=== PATIENT | male | born 1940 | race Caucasian/White ===

== ENCOUNTER → 2018-05-13 | Outpatient (CLI) | payer OTHER ==
[~2018-05-13] MED LIST: ASPIRIN81 M2 PO; CIALIS5 MG PO; GINGER250 MG PO; GLUCOSAMINE HC500 M1 PO; LOSARTAN POTASS50 MG PO; NEURONTIN 300300 M1 PO; NORVASC5 MG PO; SAW PALMETTO450 MG PO; VITAMIN B-1100 M2 PO; VITAMIN D3 COM1 EACH PO
== END ==
LOC: MRI 12:37
DX: M47.816 Spondylosis without myelopathy or radiculopathy, lumbar region (principal); M48.05 Spinal stenosis, thoracolumbar region; M51.25 Other intervertebral disc displacement, thoracolumbar region; M51.27 Other intervertebral disc displacement, lumbosacral region; R29.898 Other symptoms and signs involving the musculoskeletal system

== ENCOUNTER → 2018-06-14 | Outpatient (CLI) | payer OTHER ==
[~2018-06-14] VITALS: Ht 185.4 cm; Wt 83.1 kg
--- NOTE | ~2018-06-14 | HPC ---
[facility] [place] [address] PAIN MANAGEMENT CONSULTATION Name: FABRICEJB Dez HERNANDEZ Room #: REG [facility].#: [id number] Admission: 06/14/18 ������������������ Attend Phys: Patrice Mariscal DO Discharge: ������������������ Date of : 42 Report #: [id number] THIS REPORT FOR: //name// CC: Patrice Valenzuela MD DATE OF SERVICE: 06/14/2018 CHIEF COMPLAINT: Bilateral lower extremity paresthesias. HISTORY OF PRESENT ILLNESS: As you know, the patient is a very pleasant 77-year-old male with longstanding history of peripheral neuropathy, which involves bilateral lower extremities in a stocking distribution. He was referred to our clinic to discuss treatment options for peripheral neuropathic pain. We saw the patient in consultation on 05/18/2018 per the request of his primary care physician and he was prescribed gabapentin for neuropathic pain control. He was given a titration schedule to follow. The patient states he began the medication, but did not like the sensation he had and did not feel his symptoms required medications as he was only having mild symptoms. He subsequently discontinued the medication. He had no significant side effects to the medication except for some somnolence in the evening hours. He returns today in followup visit to discuss options for treatment. He is denying any new injury, new trauma or any changes in medical history except for the discontinuation of gabapentin indicated above. ALLERGIES: No known drug allergies. CURRENT MEDICATIONS: Losartan 50 mg once a day, amlodipine 5 mg once a day, Cialis 5 mg p.r.n., aspirin 81 mg per day, saw palmetto 500 mg once a day, multivitamin 1 tab per day, thiamine 100 mg once a day, wayne root 250 mg once a day and glucosamine 500 mg once a day. PQRS: The patient has osteoarthritic changes of the lumbar spine, bilateral knees, no rheumatoid arthritis. He is placing current pain score at 2/10. He is not a fall risk, has not had a fall in the last 3 months. He is not on blood thinners, but is treated for hypertension. He is not on any chronic opioids. He has a low opioid assessment for risk of addiction. He is placing pain impact score at 26/70, mild interference of daily activities secondary to pain. IMAGING: No new imaging available. PHYSICAL EXAMINATION: VITAL SIGNS: Blood pressure 142/88, pulse 85, respiratory rate 16 and unlabored. The patient is 100% on room air, height 6 feet 1 inch tall, weight 183.2 pounds, BMI [place] 24.2[place] [address] PAIN MANAGEMENT CONSULTATION Name: JB AVINA Dez HERNANDEZ Room #: REG [facility]#: [id number] Admission: 06/14/18 ������������������ Attend Phys: Patrice Mariscal DO Discharge: ������������������ Date of : 41 Report #: [id number] GENERAL: Well-developed, well-nourished, well-hydrated 77-year-old male appearing stated age, placing pain no greater than 2/10. HEENT: Normocephalic and atraumatic. Pupils are equal, round and reactive to light. EXTREMITIES: Show no clubbing, no cyanosis and no edema. MUSCULOSKELETAL: Lower extremity strength appears equal and symmetrical 5/5, intact to light touch from L1 through L4. There is tactile sensation loss for a L5-S1 dermatomal distribution in the distal portion in a stocking type pattern of the bilateral lower extremities. Ankle clonus is negative. Babinski is negative. ASSESSMENT: 1. Peripheral neuropathy. 2. 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 3. Chronic intractable pain. PLAN: 1. The patient returns today in followup visit to discuss treatment options for peripheral neuropathic symptoms. He states at this time his pain is easily tolerated. He does not wish to be on any long-term medication. He is not interested in the spinal cord stimulator and surgical options do not exist for peripheral neuropathic symptoms such as his. We did discuss the gabapentin as an option for treatment, but again the patient did not wish to be on medications. He has subsequently discontinued the gabapentin, but does have that available if he wish to restart that medication assuming his symptoms return to a level of intolerable pain levels. 2. We spent 20 minutes of time with the patient today just discussing adjunctive treatment options including acupuncture therapy as a treatment option, myofascial release even in mindful awareness and cognitive behavioral therapy, all of which have been shown to be effective in diabetic peripheral neuropathy, not dissimilar to what the patient is experiencing. He will consider these options. I did give the patient some information about acupuncture therapists in the area that we would recommend. 3. We will see the patient back in followup visit on an as needed basis. I am pleased at this point that the patient states that his pain is completely tolerable, he is not having any issues, he does not wish to initiate any long-term therapy if he has tolerable symptoms at present. Certainly, this can be readdressed if his pain does become intensified. 4. We will be returning the patient's care to Dr. Fuentes Valenzuela, the referring physician. We will be available to see him back in followup visit on an as needed basis. ��������������������������������������������� ���������������������������������������� By: ��������������������������������������������� 1158 0730 Patrice Mariscal DO /nt
[2018-06-14 10:04] VITALS: BP 142/88
--- NOTE | 2018-06-14 10:27 | NUR ---
Pain Clinic Assessment: 1. History of Osteoarthritis: Not Applicable History of Rheumatoid Arthritis: Not Applicable 2. Height: 6 ft. 1 in. 185.4 cm. Weight: 183.2 lb. oz. 83.099 kg. Patient's BMI: 24.2 3. Vital Signs: BP: 142/88 Pulse: 85 Resp: 16 Temp: 02 Sat: 100 ECG Mon: 4. Pain Intensity: 2 5. Fall Risk: Dizziness: N Needs help standing or walking: N Fallen in the last 3 months: N Fall risk comments: 6. Patient on Blood Thinner: None 7. History of Hypertension: Y 8. Opioid Therapy greater than 6 weeks: N Opiate Contract Signed: 9. Risk Assessment Tool Provided: LOW RISK 0/3 10. Functional Assessment Tool: 11. Recreational Drug Use: Never Drug Type: Tobacco Use: Current Every Day Smoker Tobacco Type: Amount or Packs/day: How Many Years: Alcohol Use: Yes Frequency: Quant:
== END ==
LOC: PAIN 06:53
DX: M47.817 Spondylosis without myelopathy or radiculopathy, lumbosacral region (principal); G89.4 Chronic pain syndrome; G62.9 Polyneuropathy, unspecified; Z79.899 Other long term (current) drug therapy

== ENCOUNTER 2018-08-16 05:30 | Day surgery (SDC) | payer OTHER ==
[~2018-08-16] VITALS: Ht 182.9 cm; Wt 79.4 kg
[~2018-08-16 05:30] MED LIST changes: +ALPHA LIPOIC A200 M1 PO; +L-ARGININE500 MG PO; +L-CARNITINE500 MG PO; +MAGOX 400400 MG PO; +OMEGA-31000 M1 PO; +SUPER B COMPLE1 EAC2 PO; +TURMERIC500 M2 PO; +VITAMIN B-12500 MCG PO; +VITAMINC500 PO
[2018-08-16 10:57] VITALS: BP 158/75
--- NOTE | 2018-08-18 14:06 | PATH ---
[facility] [address] [place] [address] PATHOLOGY RPT PROCEDURE Name: FABRICEJB MED Room #: DEP [facility] M.R.#: [id number] ������������������ Admission: 08/16/18 ������������������ Date of : 41 Discharge: 08/16/18 Report #: [id number] Path Case #: [id number] L[facility] Accession Number: [id number] . 01 Material submitted: . toe - LEFT THIRD TOE. Modifiers: left, third . 01 Clinical history: . Osteomyelitis left third toe . 02 Diagnosis: Toe, left third toe, amputation: - Marked acute inflammation associated with osteonecrosis, consistent with acute osteomyelitis. - Surgical margin viable and unremarkable. (IUV:devang; 08/18/2018) QMS/08/18/2018 . 02 Electronically signed: . Gila Smith MD, Pathologist NPI- [id number] . 01 Gross description: . The specimen is received in formalin, labeled "Jb Roberto Jr., left third toe". Received is an amputated digit measuring 2.5 x 1.8 x 1.8 cm in greatest dimensions. The bone margin is jagged in appearance. The bone and soft tissue margins are inked black. The nail is absent. The epidermal surface displays a poorly circumscribed, irregular in contour and pale palacio to light palacio lesion measuring 1.0 x 1.0 cm, which is 0.5 cm from the closest margin. A full-thickness longitudinal cross-section is submitted in cassette A1, following decalcification. . Also received within the specimen container is an additional segment of bone with attached yellow-palacio soft tissue measuring 1.5 x 1.4 x 0.6 cm in greatest dimensions. The segment is trisected and entirely submitted in cassette A2, following decalcification. (CAA; 08/17/2018) QAC/QAC . 02 Pathologist provided ICD-10: M86.172, M87.872 . 02 CPT . 174377, 331420 Specimen Comment: A courtesy copy of this report has been sent to Specimen Comment: [phone], . Specimen Comment: Report sent to / DR GARNER [address] [address] PATHOLOGY RPT PROCEDURE Name: JB ROBERTO Room #: DEP [facility] M.R.#: [id number] ������������������ Admission: 08/16/18 ������������������ Date of : 41 Discharge: 08/16/18 Report #: [id number] Path Case #: [id number] Performed at: 01 [facility] Jenae Morataya [address] [facility], [place], [place] [id number] MD Willian Oropeza MD Phone: [phone] Performed at: [address] [id number] MD Gila Smith MD Phone: [phone]
== END 2018-08-16 14:00 | disposition home or self-care (01) ==
LOC: TBA 05:30 → OR 05:30
DX: M86.172 Other acute osteomyelitis, left ankle and foot (principal); M87.878 Other osteonecrosis, left toe(s); I10 Essential (primary) hypertension; G62.9 Polyneuropathy, unspecified; F17.210 Nicotine dependence, cigarettes, uncomplicated; Z98.890 Other specified postprocedural states; Z79.899 Other long term (current) drug therapy; Z85.828 Personal history of other malignant neoplasm of skin; Z98.41 Cataract extraction status, right eye; Z98.42 Cataract extraction status, left eye
CPT/HCPCS: 50010; 50101; 50386; 56525; 57091; 57178

== ENCOUNTER → 2019-05-23 | Outpatient (CLI) | payer OTHER ==
[2019-05-23 08:22] LABS: CREATININE 1.1 mg/dL (0.7-1.3)
== END ==
LOC: CAT 06:27
PROVIDERS: Family Medicine
DX: M47.814 Spondylosis without myelopathy or radiculopathy, thoracic region (principal); J98.4 Other disorders of lung; R91.1 Solitary pulmonary nodule; R05 Cough

== ENCOUNTER → 2020-06-20 | Outpatient (CLI) | payer OTHER | LOC: RAD 08:59 | PROVIDERS: ATTEND Family Medicine | DX: M81.0 Age-related osteoporosis without current pathological fracture (principal); M25.552 Pain in left hip ==

== ENCOUNTER → 2020-06-24 | Outpatient (CLI) | payer OTHER | LOC: CAT 09:37 | PROVIDERS: ATTEND Family Medicine | DX: Z13.6 Encounter for screening for cardiovascular disorders (principal); I25.10 Atherosclerotic heart disease of native coronary artery without angina pectoris; E78.00 Pure hypercholesterolemia, unspecified ==

== ENCOUNTER → 2020-07-04 | Outpatient (CLI) | payer OTHER | LOC: MRI 13:54 | PROVIDERS: ATTEND Family Medicine | DX: S73.192A Other sprain of left hip, initial encounter (principal); M25.452 Effusion, left hip; M25.752 Osteophyte, left hip; M16.12 Unilateral primary osteoarthritis, left hip; M47.816 Spondylosis without myelopathy or radiculopathy, lumbar region; X58.XXXA Exposure to other specified factors, initial encounter; Y93.89 Activity, other specified; Y92.89 Other specified places as the place of occurrence of the external cause; Y99.8 Other external cause status ==

== ENCOUNTER → 2020-07-05 | Outpatient (CLI) | payer OTHER | LOC: SJCVCIMAG 07:44 | PROVIDERS: ATTEND Family Medicine | DX: R93.1 Abnormal findings on diagnostic imaging of heart and coronary circulation (principal); E78.5 Hyperlipidemia, unspecified; I10 Essential (primary) hypertension; I25.10 Atherosclerotic heart disease of native coronary artery without angina pectoris; R10.9 Unspecified abdominal pain; R06.00 Dyspnea, unspecified; R11.0 Nausea; F17.200 Nicotine dependence, unspecified, uncomplicated; Z79.899 Other long term (current) drug therapy ==

== ENCOUNTER → 2020-07-08 | Outpatient (CLI) | payer OTHER ==
[~2020-07-08] MED LIST changes: +CRESTOR5 MG PO; +HYDROCHLOROTH12.5 M2 PO; +MAGNESIUM250 M1 PO; +TOPROL XL50 MG PO; +[UNRECOGNIZED DRUG - OTHER] PO
== END ==
LOC: SJCVC 10:52
PROVIDERS: ATTEND Internal Medicine Cardiovascular Disease
DX: R94.31 Abnormal electrocardiogram [ECG] [EKG] (principal); R93.1 Abnormal findings on diagnostic imaging of heart and coronary circulation; I25.10 Atherosclerotic heart disease of native coronary artery without angina pectoris; I10 Essential (primary) hypertension; E78.00 Pure hypercholesterolemia, unspecified; E78.5 Hyperlipidemia, unspecified; F17.200 Nicotine dependence, unspecified, uncomplicated; Z79.899 Other long term (current) drug therapy; Z72.89 Other problems related to lifestyle

== ENCOUNTER → 2020-07-10 | Outpatient (CLI) | payer OTHER ==
[~2020-07-10] VITALS: Ht 182.9 cm; Wt 80.7 kg
--- NOTE | ~2020-07-10 | HC ---
[facility] [place] [address] [place] [address] CONSULTATION Name: JB AVINA Room #: REG [facility]el [facility]#: [id number] Admission: 07/10/20 Attend Phys: Ravin Morataya MD Discharge: Date of : 41 Report #: [id number] THIS REPORT FOR: cc: Fuentes Valenzuela MD, Neal A. MD Forman, John M. MD ~ DATE OF SERVICE: 07/10/2020 We were asked by Dr. Morataya to see the patient. The patient was seen in the post-cardiac catheterization area on 07/10/2020. The patient is a 79-year-old with a strongly positive calcium score. This led to a cardiac stress test that was positive. Cardiac catheterization today demonstrates important 3-vessel coronary disease including 80% left anterior descending, 80% circumflex and 70% distal right coronary stenoses. Left ventricular function is satisfactory. PAST MEDICAL HISTORY: Significant for hyperlipidemia and hypertension. The patient denies diabetes mellitus. FAMILY HISTORY: Positive for coronary disease in younger brother. MEDICATIONS: Include amlodipine, Cialis, hydrochlorothiazide, Cozaar, metoprolol, zinc, Crestor, and saw palmetto. ALLERGIES: None known. SOCIAL HISTORY: The patient is retired from his career as a [employer] soldier. REVIEW OF SYSTEMS: GENERAL: Denies weight change. EYES: Denies vision change. ENT: Denies hearing change or sinus problems. CARDIAC: As mentioned. No exertional angina, but activity has been limited. No palpitations. RESPIRATORY: Denies shortness of breath. GASTROINTESTINAL: Denies nausea, vomiting, diarrhea, or blood. GENITOURINARY: Denies urgency or frequency. MUSCULOSKELETAL: Complains of hip problems after a fall sustained at work that impedes his ability to walk. SKIN: History of multiple squamous cell cancers. NEUROLOGIC: Neuropathy in feet and starting to have occurred in the hands. HEMATOLOGIC: No bruisability or bleeding. [facility] [address] [place] [address] CONSULTATION Name: JB AVINA Room #: REG [facility]#: [id number] Admission: 07/10/20 Attend Phys: Ravin Morataya MD Discharge: Date of : 41 Report #: [id number] PHYSICAL EXAMINATION: GENERAL: The patient is a pleasant fellow. He is lying in bed after cardiac catheterization, ectomorphic habitus. VITAL SIGNS: Blood pressure 140/78, heart rate 68. HEENT: No scleral icterus, no arcus. NECK: No mass. I hear no bruit. CHEST: Clear to auscultation. HEART: Rhythm regular, no murmur. ABDOMEN: Soft. EXTREMITIES: No clubbing, cyanosis or edema. SKIN: No rash or infection. NEUROLOGIC: No obvious motor or sensory dysfunction, but detailed sensory testing was not done. PSYCHIATRIC: Oriented and appropriate. MUSCULOSKELETAL: No obvious bone or joint asymmetry or deformity. SKIN: Multiple senile keratoses. ASSESSMENT: The patient has important 3-vessel coronary artery disease. I discussed the risks and details of coronary bypass surgery. These include but are not limited to bleeding, infection, anesthesia risks, heart and lung problems, stroke, and . Options and alternatives were reviewed. The patient understands all of this and wishes to proceed with surgery. It is a privilege to participate in this challenging patient's care. Thank you for the consult. By: 1327 1450 Ray Perez MD /nt
[2020-07-10 08:44] VITALS: BP 133/67
--- NOTE | 2020-07-10 12:48 | CATHLAB ---
[facility] [place] [place] [address] INVASIVE PROCEDURE REPORT Name: FABRICEJB JOVEL [id number] Admission: 07/10/20 Attend Phys: Ravin Morataya MD Discharge: Date of : 41 Report #: [id number] THIS REPORT FOR: cc: Fuentes Valenzuela MD, Neal A. MD Park, Jin S. MD ~ APPROVED REPORT Study performed: 07/10/2020 09:45:09 Patient Details Patient Status: Out-Patient Room #: The patient is a 79 year-old male Event Personnel Ravin Morataya Electronic Device Repairer, Johnnie Trinidad RN RN, Latanya Aguilar RTR, GROUP PROGRAM MANAGER Monitor, Hilda Castanon Scrub Procedures Performed Art Access - R femoral artery* Left Heart Cath w/or w/o Coronaries [id number] [facility] Hemostasis with Manual pressure 52304 Initial Mod Sed Same Phys/QHP Gr5y 435019 63887 Mod Sed Same Phys/QHP Ea 105704 Indication Positive stress test, Pre-op clearance Risk Factors Hypercholesterolemia, Coronary Artery DiseaseHypertension Procedure Narrative The Right Groin^ was infiltrated with 1% Lidocaine subcutaneous anesthesia. A PINNACLE 4FR Sheath #[id number] sheath was inserted into the RFA^. Coronary angiography was performed using coronary diagnostic catheters. The right coronary system was accessed and visualized with a JR4 catheter. The left coronary system was accessed and visualized with a JL4 catheter. The left ventricle was accessed and visualized with a ANGLED PIGTAIL catheter. Left ventricular/Aortic Valve gradient assessed via catheter pullback. Left ventriculogram was performed in 30 degree projection. Hemostasis was obtained with manual pressure following sheath removal without any complications. The patient tolerated the procedure well and there were no complications associated with the procedure. There was no hematoma. [facility] [address] [place] [address] INVASIVE PROCEDURE REPORT Name: JB AVINA Room #: REG [facility]#: [id number] Admission: 07/10/20 Attend Phys: Ravin oMrataya MD Discharge: Date of : 41 Report #: [id number] Intraoperative Conscious Sedation Sedation start time: 10:41 Case end Time: 11:14 Fentanyl 50 mcg Versed 1 mg Fluoro Time: 2.60 minutes Dose: DAP 6395.10 cGycm2 966 mGy Contrast Type and Amount: Omnipaque 100 ml Coronary Angiography The patient's coronary anatomy is right dominant. Diagnostic Cath Left Main There is mild to moderate disease in the distal left main segment, 30 to 40%. LAD The LAD is a moderate-sized caliber vessel, traverses the anterior wall and wraps around the apex. There is a borderline stenosis in the proximal segment. There is a severe, eccentric stenosis in the midsegment, 70 to 80%. Diagonal 1 This is a small to moderate-sized caliber vessel, with mild diffuse disease proximally. Diagonal 2 This is a moderate-sized caliber vessel, with moderate disease proximally. Circumflex The left circumflex artery has a severe occlusion in the proximal segment, 70 to 80%. OM1 This is a moderate-sized caliber vessel, with mild disease proximally. OM2 This is a small caliber vessel, with no flow-limiting lesions. Right Coronary The RCA has moderate disease in the proximal segment. R PDA This divides into 2 branches. The more lateral branch has a 60% stenosis. RPLV There is a severe occlusion in the proximal segment, 80%. Left Ventriculography The left ventricle is normal in size with normal contractility. The left ventricular ejection fraction is estimated to be >55%. Hemodynamics The aortic pressure is 143/65 mmHg with a mean of 96 mmHg. The left ventricular pressure is 159/10 mmHg with a mean of mmHg. The left ventricular end diastolic pressure is 23 mmHg. [facility] [address] [place] [address] INVASIVE PROCEDURE REPORT Name: FABRICEJB JOVEL Room #: REG [facility]#: [id number] Admission: 07/10/20 Attend Phys: Ravin Morataya MD Discharge: Date of : 41 Report #: [id number] Conclusion 1. Severe three-vessel coronary artery disease. 2. Right dominant system. 3. Normal LV systolic function. 4. Recommend CV surgical consultation and risk factor management. <ELECTRONICALLY SIGNED> By: Ravin Morataya MD 07/10/20 1248 1248 1248 Ravin Morataya MD /INF
[2020-07-10 13:14] LABS: URINE BILIRUBIN NEGATIVE (Negative); URINE BLOOD NEGATIVE (Negative); URINE CLARITY CLEAR; URINE COLOR YELLOW; URINE GLUCOSE-RANDOM* NEGATIVE (Negative); URINE KETONES NEGATIVE (Negative); URINE LEUKOCYTES-REFLEX NEGATIVE (Negative); URINE NITRITE-REFLEX NEGATIVE (Negative); URINE PROTEIN (DIPSTICK) NEGATIVE (Negative); URINE UROBILINOGEN 0.2 E.U./dl (0.2-1.0)
== END | disposition home or self-care (01) ==
LOC: CATH 07:07
PROVIDERS: Surgery Vascular Surgery; ATTEND Internal Medicine Cardiovascular Disease
DX: R94.39 Abnormal result of other cardiovascular function study (principal); I25.10 Atherosclerotic heart disease of native coronary artery without angina pectoris; I10 Essential (primary) hypertension; E78.00 Pure hypercholesterolemia, unspecified; E78.5 Hyperlipidemia, unspecified; Z98.890 Other specified postprocedural states; Z79.899 Other long term (current) drug therapy; Z98.41 Cataract extraction status, right eye; Z98.42 Cataract extraction status, left eye; Z85.828 Personal history of other malignant neoplasm of skin

== ENCOUNTER → 2020-07-18 | Outpatient (CLI) | payer OTHER ==
[~2020-07-18] MED LIST changes: +ALPHA LIPOIC A100 MG PO; +ASA81BEC PO; +GRAPE SEED EXTR50 MG PO; +LYCOPENE10 MG PO; +METHYLCOBAL10000 MCG PO; +PROBIOTIC1 EAC7 PO; +TROSPIUM CHLORI20 MG PO; +VITAMIN D350 MCG PO; +ZINC50 M1 PO
[2020-07-18 08:58] LABS: BASOPHILS 0.5 % (0.0-2.0); EOSINOPHILS 5.4 % (0.0-3.0); HEMATOCRIT 37.8 % (42.0-52.0); HEMOGLOBIN 12.9 gm/dL (14.0-18.0); LYMPHOCYTES 20.8 % (24.0-44.0); MCH 32.9 pg (26.0-34.0); MCV 96.8 fL (80.0-100.0); MONOCYTES 7.3 % (1.0-8.0); PLATELET COUNT 422 thou/uL (150-400); RBC 3.91 mil/uL (4.50-6.00); RDW 12.5 % (10.5-14.5); WBC 7.6 thou/uL (4.0-11.0)
[2020-07-18 09:16] LABS: APTT 29.2 Seconds (24.5-32.8); INR 0.98; PROTIME 10.7 Seconds (9.3-11.4)
[2020-07-18 09:17] LABS: ALBUMIN 3.5 g/dL (3.4-5.0); CALCIUM 9.1 mg/dL (8.5-10.1); CREATININE 1.1 mg/dL (0.7-1.3); POTASSIUM 4.7 mmol/L (3.5-5.1); TOTAL BILIRUBIN 0.4 mg/dL (0.2-1.0); TOTAL PROTEIN 7.2 g/dL (6.4-8.2)
== END ==
LOC: LAB 08:13
PROVIDERS: ATTEND Surgery Vascular Surgery
DX: Z01.812 Encounter for preprocedural laboratory examination (principal); Z20.822 Contact with and (suspected) exposure to COVID-19

== ENCOUNTER → 2020-07-19 | Outpatient (CLI) | payer OTHER | LOC: SJCVCIMAG 08:29 | PROVIDERS: ATTEND Internal Medicine Cardiovascular Disease | DX: Z01.810 Encounter for preprocedural cardiovascular examination (principal); I07.1 Rheumatic tricuspid insufficiency; I25.10 Atherosclerotic heart disease of native coronary artery without angina pectoris; I65.23 Occlusion and stenosis of bilateral carotid arteries ==

== ENCOUNTER → 2020-08-07 | Outpatient (CLI) | payer OTHER ==
[~2020-08-07] MED LIST changes: +HYDROCODON-ACE1 EAC7 PO; +PACERONE 200 M200 M1 PO
== END ==
LOC: SJCVC 10:44
PROVIDERS: ATTEND Internal Medicine Cardiovascular Disease
DX: R94.31 Abnormal electrocardiogram [ECG] [EKG] (principal); I45.10 Unspecified right bundle-branch block; I11.9 Hypertensive heart disease without heart failure; I25.119 Atherosclerotic heart disease of native coronary artery with unspecified angina pectoris; I10 Essential (primary) hypertension; E78.00 Pure hypercholesterolemia, unspecified; I47.1 Supraventricular tachycardia; E78.5 Hyperlipidemia, unspecified; F17.200 Nicotine dependence, unspecified, uncomplicated; Z95.1 Presence of aortocoronary bypass graft; Z79.82 Long term (current) use of aspirin; Z79.899 Other long term (current) drug therapy

== ENCOUNTER → 2020-09-04 | Outpatient (CLI) | payer OTHER | LOC: SJCVC 11:04 | PROVIDERS: ATTEND Internal Medicine Cardiovascular Disease | DX: E78.00 Pure hypercholesterolemia, unspecified (principal); I10 Essential (primary) hypertension; I25.111 Atherosclerotic heart disease of native coronary artery with angina pectoris with documented spasm; E78.5 Hyperlipidemia, unspecified; Z95.1 Presence of aortocoronary bypass graft; Z79.82 Long term (current) use of aspirin; Z79.899 Other long term (current) drug therapy; F17.210 Nicotine dependence, cigarettes, uncomplicated; Z72.89 Other problems related to lifestyle ==

== ENCOUNTER → 2020-09-19 | Outpatient (CLI) | payer OTHER | LOC: SJCVCIMAG 07:28 | PROVIDERS: ATTEND Internal Medicine Cardiovascular Disease | DX: I07.1 Rheumatic tricuspid insufficiency (principal); R00.1 Bradycardia, unspecified; I45.10 Unspecified right bundle-branch block; R94.31 Abnormal electrocardiogram [ECG] [EKG]; I10 Essential (primary) hypertension; I25.10 Atherosclerotic heart disease of native coronary artery without angina pectoris; E78.00 Pure hypercholesterolemia, unspecified; E78.5 Hyperlipidemia, unspecified; Z95.1 Presence of aortocoronary bypass graft; F17.200 Nicotine dependence, unspecified, uncomplicated; Z79.82 Long term (current) use of aspirin; Z79.899 Other long term (current) drug therapy; Z85.828 Personal history of other malignant neoplasm of skin ==

== ENCOUNTER → 2020-12-19 | Outpatient (CLI) | payer OTHER | LOC: SJCVCIMAG 13:49 | PROVIDERS: ATTEND Internal Medicine Cardiovascular Disease | DX: I70.202 Unspecified atherosclerosis of native arteries of extremities, left leg (principal); M79.606 Pain in leg, unspecified ==

== ENCOUNTER → 2020-12-25 | Outpatient (CLI) | payer OTHER | LOC: SJCVC 13:07 | PROVIDERS: ATTEND Nuclear Medicine Nuclear Cardiology | DX: I73.9 Peripheral vascular disease, unspecified (principal); I77.9 Disorder of arteries and arterioles, unspecified; I25.119 Atherosclerotic heart disease of native coronary artery with unspecified angina pectoris; I10 Essential (primary) hypertension; E78.00 Pure hypercholesterolemia, unspecified; L97.529 Non-pressure chronic ulcer of other part of left foot with unspecified severity; Z72.89 Other problems related to lifestyle; Z87.891 Personal history of nicotine dependence; Z88.8 Allergy status to other drugs, medicaments and biological substances; Z79.82 Long term (current) use of aspirin; Z79.899 Other long term (current) drug therapy; E78.5 Hyperlipidemia, unspecified; Z95.1 Presence of aortocoronary bypass graft ==

== ENCOUNTER → 2021-01-10 | Outpatient (CLI) | payer OTHER ==
[~2021-01-10] MED LIST changes: +ALPHA LIPOIC A300 MG PO; +B-121000 MC1 PO; +BACTRIM DS TAB1 EACH PO; +BENFOTIAMINE150 MG PO; +COQ-10100 MG PO; +FACTOR PO; +FLOMAX0.4 MG PO; +GINSENG COMPLE1 EACH PO; +L-CARNITINE500 M1 PO; +MAGNESIUM400 MG PO; +SAW PALMETTO160 MG PO; +VITAMIN B-625 MG PO
== END ==
LOC: SJCVC 13:40
PROVIDERS: ATTEND Internal Medicine Cardiovascular Disease
DX: R94.31 Abnormal electrocardiogram [ECG] [EKG] (principal); I45.10 Unspecified right bundle-branch block; I10 Essential (primary) hypertension; I25.10 Atherosclerotic heart disease of native coronary artery without angina pectoris; E78.00 Pure hypercholesterolemia, unspecified; R60.9 Edema, unspecified; Z79.899 Other long term (current) drug therapy; Z79.82 Long term (current) use of aspirin; G62.9 Polyneuropathy, unspecified; Z87.891 Personal history of nicotine dependence; Z72.89 Other problems related to lifestyle

== ENCOUNTER 2021-01-13 15:31 | Day surgery (SDC) | payer OTHER ==
[~2021-01-13] VITALS: Ht 182.9 cm; Wt 78.5 kg
[2021-01-13 16:10] VITALS: BP 126/63
--- NOTE | 2021-01-15 18:06 | PATH ---
[facility] [address] [place] [address] PATHOLOGY RPT PROCEDURE Name: FABRICEJB Room #: DEP [facility] M.R.#: [id number] Admission: 01/13/21 Date of : 42 Discharge: 01/13/21 Report #: [id number] Path Case #: [id number] LCA Accession Number: [id number] . 01 Material submitted: . toe - LEFT SECOND TOE. Modifiers: left, second . 01 Clinical history: . AMPUTATION TOES LEFT SECOND TOE OSTEMYELITIS . 02 Diagnosis: "Left second toe", amputation - Chronic and acute osteomyelitis. - Resection margin viable. (SCA:joo; 01/15/2021) MBR 01/15/2021 1343 Local . 02 Electronically signed: . Killian Lozano DO, Pathologist NPI- [id number] . 01 Gross description: . The specimen is received in formalin, labeled "Jb Roberto, left second toe". Received is an amputated digit measuring 3.4 x 2.6 x 2.4 cm in greatest dimensions. The bone margin is smooth and concave in appearance, consistent with disarticulation, and appears grossly unremarkable. The bone and soft tissue margins are inked black. The nail is present displaying a light palacio and slightly thickened appearance. At the distal aspect of the specimen, there is an ill-defined, irregular in contour and pink-palacio to light palacio lesion measuring 1.6 x 1.5 cm, which is 1.6 cm from the closest skin margin. A full-thickness longitudinal cross-section is submitted from proximal to distal aspects in cassettes A1 and A2, following decalcification. (CAA; 01/14/2021) QAC/QA 01/14/2021 0905 Local . 02 Pathologist provided ICD-10: M86.172, M86.672 . 02 CPT . 340020, 101316 Specimen Comment: A courtesy copy of this report has been sent to [phone] Specimen Comment: [phone] Specimen Comment: Report sent to / DR GARNER Performed at: 01 [place] [address] PATHOLOGY RPT PROCEDURE Name: JB ROBERTO Room #: DEP [facility] M.Marguerite#: [id number] Admission: 01/13/21 Date of : 41 Discharge: 01/13/21 Report #: [id number] Path Case #: [id number] [facility] [address] [address], [place], [place] [id number] MD Kirill Gray MD Phone: [phone] Performed at: 02 [facility] [address] [id number] MD García Pompa MD Phone: [phone]
== END 2021-01-13 18:55 | disposition home or self-care (01) ==
LOC: OR 15:31 → TBA 18:13 → OR 18:55
PROVIDERS: ATTEND Podiatrist Foot & Ankle Surgery
DX: M86.172 Other acute osteomyelitis, left ankle and foot (principal); M86.672 Other chronic osteomyelitis, left ankle and foot; I10 Essential (primary) hypertension; I25.10 Atherosclerotic heart disease of native coronary artery without angina pectoris; E78.5 Hyperlipidemia, unspecified; G47.30 Sleep apnea, unspecified; Z98.890 Other specified postprocedural states; Z85.828 Personal history of other malignant neoplasm of skin; Z79.899 Other long term (current) drug therapy; Z20.822 Contact with and (suspected) exposure to COVID-19; Z87.891 Personal history of nicotine dependence; Z95.1 Presence of aortocoronary bypass graft
CPT/HCPCS: 50010; 50101; 50386; 50951; 56525; 57091; 57178